=== PATIENT | male | born 1960 | race Caucasian/White ===

== ENCOUNTER 2022-11-15 11:31 | Outpatient (CLI) | payer OTHER | END 2022-11-15 11:32 | disposition home or self-care (01) | LOC: NAV RAD 11:31 | PROVIDERS: ATTEND Family Medicine | DX: C91.10 Chronic lymphocytic leukemia of B-cell type not having achieved remission (principal); G47.33 Obstructive sleep apnea (adult) (pediatric) | CPT/HCPCS: 71046 ==